=== PATIENT | male | born 1970 | race Caucasian/White ===

== ENCOUNTER 2018-12-24 15:48 | Emergency (ER) | payer MEDICAID, OTHER ==
[~2018-12-24] VITALS: Wt 82.0 kg
[2018-12-24] MEDS ORDERED: SOD CHLORIDE 0.9% 1,000 ML IV STA (16:58)
[2018-12-24] MEDS ORDERED: LORAZEPAM 1 MG TAB PO ONE (17:00)
[2018-12-24] MEDS ORDERED: ONDANSETRON 4 MG INJ IV STA ×2 (17:09→17:57)
--- NOTE | 2018-12-24 18:32 | ERD ---
ER Documentation Chief Complaint Chief Complaint ETOH INTOXICATION, WANTS IV FLUIDS, LAST DRINK 2 HR AGO HPI 48-year-old male with a history of alcoholism presenting with complaints of generalized weakness, feeling anxious, and feels dehydrated. His last drink was about 2 hours ago. He has about 10-15 beers per day. He denies any vomiting, hematochezia, or melena but does endorse nausea. Denies any headache, chest pain, shortness of breath, abdominal pain. No fevers or chills. ROS All systems reviewed and are negative except as per history of present illness. Medications Home Meds Active Scripts Chlordiazepoxide* (Chlordiazepoxide*) 25 Mg Capsule, 25 MG PO Q8 PRN for CONTROL WITHDRAWAL SYMPTOMS, #10 CAP Prov:GENEVIEVE PANCHAL MD 12/24/18 Allergies Allergies: Coded Allergies: No Known Allergy (Unverified , 12/24/18) PMhx/Soc Medical and Surgical Hx: pt denies Surgical Hx Hx Miscellaneous Medical Probl: Yes (Alcoholism) Hx Alcohol Use: Yes Hx Substance Use: No Hx Tobacco Use: No FmHx Family History: No diabetes Physical Exam Vitals Vital Signs Date Temp Pulse Resp B/P (MAP) Pulse Ox O2 O2 Flow FiO2 Time Delivery Rate 12/24/18 98.5 100 18 128/91 96 Room Air 20:01 (103) 12/24/18 98.5 111 18 137/99 98 Room Air 17:01 (112) 12/24/18 98.5 99 18 148/93 99 15:50 (111) Physical Exam Const: No acute distress Head: Atraumatic Eyes: Normal Conjunctiva ENT: Normal External Ears, Nose and Mouth. Neck: Full range of motion. No meningismus. Resp: Clear to auscultation bilaterally Cardio: Regular rate and rhythm, no murmurs Abd: Soft, non tender, non distended. Normal bowel sounds Skin: No petechiae or rashes Back: No midline or flank tenderness Ext: No cyanosis, or edema Neur: Awake and alert, oriented x3, normal speech, moving all extremities. No tremors Psych: Normal Mood and Affect Result Diagram: 12/24/18 1702 12/24/18 1702 Results 24 hrs Laboratory Tests Test 12/24/18 17:02 White Blood Count 5.6 10^3/ul Red Blood Count 4.60 10^6/ul Hemoglobin 14.3 g/dl Hematocrit 42.4 % Mean Corpuscular Volume 92.2 fl Mean Corpuscular Hemoglobin 31.1 pg Mean Corpuscular Hemoglobin Concent 33.7 g/dl Red Cell Distribution Width 12.8 % Platelet Count 142 10^3/UL Mean Platelet Volume 9.4 fl Immature Granulocytes % 0.200 % Neutrophils % 59.7 % Lymphocytes % 28.7 % Monocytes % 9.0 % Eosinophils % 1.1 % Basophils % 1.3 % Nucleated Red Blood Cells % 0.0 /100WBC Immature Granulocytes # 0.010 10^3/ul Neutrophils # 3.3 10^3/ul Lymphocytes # 1.6 10^3/ul Monocytes # 0.5 10^3/ul Eosinophils # 0.1 10^3/ul Basophils # 0.1 10^3/ul Nucleated Red Blood Cells # 0.0 10^3/ul Urine Color YELLOW Urine Clarity CLEAR Urine pH 6.0 Urine Specific [place] 1.010 Urine Ketones NEGATIVE mg/dL Urine Nitrite NEGATIVE mg/dL Urine Bilirubin NEGATIVE mg/dL Urine Urobilinogen 1+ mg/dL Urine Leukocyte Esterase NEGATIVE Margarette/ul Urine Microscopic RBC 0 /HPF Urine Microscopic WBC 2 /HPF Urine Mucus FEW /HPF Urine Hemoglobin NEGATIVE mg/dL Urine Glucose NEGATIVE mg/dL Urine Total Protein 1+ mg/dl Sodium Level 147 mmol/L Potassium Level 3.8 mmol/L Chloride Level 105 mmol/L Carbon Dioxide Level 25 mmol/L Anion Gap 17 Blood Urea Nitrogen 6 mg/dl Creatinine 0.88 mg/dl Est Glomerular Filtrat Rate mL/min > 60 mL/min Glucose Level 109 mg/dl Calcium Level 9.6 mg/dl Total Bilirubin 0.5 mg/dl Direct Bilirubin 0.00 mg/dl Indirect Bilirubin 0.5 mg/dl Aspartate Amino Transf (AST/SGOT) 303 IU/L Alanine Aminotransferase (ALT/SGPT) 124 IU/L Alkaline Phosphatase 116 IU/L Total Protein 9.1 g/dl Albumin 5.0 g/dl Globulin 4.10 g/dl Albumin/Globulin Ratio 1.21 Current Medications Medications Dose Sig/Andrea Start Time Status Last (Trade) Ordered Route PRN Stop Time Admin Dose Reason Admin Sodium 1,000 ml @ Q1H STAT 12/24/18 DC 12/24/18 Chloride 1,000 mls/hr IV 16:58 12/24/18 17:17 17:57 Lorazepam 1 mg ONCE ONCE 12/24/18 DC 12/24/18 (Ativan) PO 17:00 12/24/18 17:16 17:01 Ondansetron 4 mg ONCE STAT 12/24/18 DC 12/24/18 HCl (Zofran IV 17:09 12/24/18 17:16 Inj) 17:10 Ondansetron 4 mg ONCE STAT 12/24/18 DC 12/24/18 HCl (Zofran IV 17:57 12/24/18 18:04 Inj) 17:58 Ibuprofen 600 mg ONCE ONCE 12/24/18 DC 12/24/18 (Motrin) PO 19:30 12/24/18 19:40 19:31 Procedures/MDM EMERGENT LABS AND DIAGNOSTIC STUDIES: Lab Results above were reviewed and interpreted by me. CBC: no anemia or evidence of infection CMP: Mild hypernatremia, likely secondary to dehydration. Elevated liver enzymes, consistent with likely alcoholic hepatitis. No evidence of clinically significant electrolyte abnormality, acidosis, renal failure EKG: Rate/Rhythm: Normal Sinus Rhythm QRS, ST, T-waves: No changes consistent w/ acute ischemia Impression: No evidence of ischemia or arrhythmia Initial Nursing notes reviewed. Previous Medical Records requested via the Electronic Health Record. EMERGENCY DEPARTMENT COURSE / MEDICAL DECISION MAKING: Patient is presenting with complaints of generalized weakness and dehydration. He states that he does not want to drink anymore. He was given IV fluids and oral Ativan with improvement of his symptoms. He was also treated with antiemetics for nausea. He is likely undergoing some mild withdrawal from alcohol. Labs do not show any significant abnormalities other than signs of dehydration and alcohol abuse. I do not suspect acute surgical abdomen. Upon reevaluation, the patient is feeling much better. I recommended starting Librium for his withdrawal symptoms and warned of the risks of using this medication along with alcohol if he decides to do so. Patient's blood pressure was elevated (>120/80) but appears stable without evidence of hypertensive emergency or urgency. The patient was counseled about the risks of hypertension and urged to pursue outpatient monitoring and therapy within a week with their primary care physician. Departure Diagnosis: Primary Impression: Alcoholic intoxication Complication of substance-induced condition: uncomplicated Qualified Codes: F10.920 - Alcohol use, unspecified with intoxication, uncomplicated Additional Impressions: Generalized weakness Dehydration Alcoholic hepatitis Ascites presence: without ascites Qualified Codes: K70.10 - Alcoholic hepatitis without ascites Condition: Stable GENEVIEVE PANCHAL MD Dec 24, 2018 18:32
[2018-12-24] MEDS ORDERED: CHLO25CA9 PO (19:21)
[2018-12-24] MEDS ORDERED: IBUPROFEN 600 MG TAB PO ONE (19:30)
[2018-12-24 20:01] VITALS: BP 128/91; PULSE 100; RESP 18
== END 2018-12-24 20:07 | disposition home or self-care (01) ==
LOC: E/R 15:48
DX: F10.920 Alcohol use, unspecified with intoxication, uncomplicated (principal); E86.0 Dehydration; K70.10 Alcoholic hepatitis without ascites
CPT/HCPCS: 36415; 80053; 81001; 85025; 96374; 96376; J2405; J7030; Z7502; Z7610